=== PATIENT | female | born 1980 | race Caucasian/White ===

== ENCOUNTER 2016-12-19 12:58 | Emergency (ER) | payer SELFPAY ==
[~2016-12-19 12:58] MED LIST: NAPR500 PO; PENI500T PO; Z.0.NO CURRENT MEDS
[2016-12-19 13:08] VITALS: BP 110/60; PULSE 72; RESP 20; TEMP 98.8; O2SAT 96
--- NOTE | 2016-12-19 13:32 | PD ---
HPI Chief Complaint: Cold / Flu Symptoms Time Seen by Provider: 13:10 Travel History International Travel<30 days: No Contact w/Intl Traveler<30days: No Traveled to known affect area: No History of Present Illness HPI 36 -year-old female presents to the emergency room for evaluation of cough and cold symptoms for the past one to 1.5 days. Patient states she can feel the sickness coming on. States everyone at work is sick. It started off with a sore throat and has spread to her chest. She reports nonproductive cough, mild congestion. She has been taking iusu-[id number] oscillococcinum with moderate relief in symptoms. Denies fever, chills, nausea, vomiting, and earache. Denies chronic medical conditions or daily medications. History Social History Alcohol Use: No Tobacco Use: Yes (1 PPD) Allergies-Medications (Allergen,Severity, Reaction): Coded Allergies: Darvocet-N 100 (Verified Allergy, Unknown, PT STATES SO LONG AGO DOES NOT KNOW WHY, 12/19/16) Reported Meds & Prescriptions Reported Meds & Active Scripts Active Naprosyn (Naproxen) 500 Mg Tab 500 Mg PO BIDPRN 30 Days Pen Vk (Penicillin V Potassium) 500 Mg Tab 500 Mg PO QID Reported No Current Meds (Miscellaneous Medication) Misc Review of Systems Except as stated in HPI: all other systems reviewed are Neg Physical Exam Narrative GENERAL: Well-nourished, well-developed female in no acute distress. Afebrile. Ambulatory. SKIN: Focused skin assessment warm/dry. HEAD: Normocephalic. EYES: No scleral icterus. No injection or drainage. ENT: Mucosa pink and moist. Mild erythema without exudates. No uvular edema. No uvular, palatal, or tonsillar deviation. Airway patent. Nasal turbinates appear normal without nasal blood, purulent drainage or septal hematoma. EARS: Bilateral pinnae and external canals appear within normal limits. Bilateral tympanic membranes without erythema, dullness or perforation. NECK: Supple, trachea midline. No JVD or lymphadenopathy. CARDIOVASCULAR: Regular rate and rhythm without murmurs, gallops, or rubs. RESPIRATORY: Breath sounds equal bilaterally. No accessory muscle use. No crackles, rales, wheezes, or rhonchi. Data Data Last Documented VS Vital Signs Date Time Temp Pulse Resp B/P Pulse Ox O2 Delivery O2 Flow Rate FiO2 7/17/17 13:08 98.8 72 20 110/60 96 MDM Medical Screen Exam Complete: Yes Emergency Medical Condition: No Differential Diagnosis Upper respiratory infection Narrative Course 36-year-old otherwise healthy female presents to the emergency room for evaluation of cough and cold symptoms for the past 2 days. People at work are sick with similar symptoms. States xzzl-ccl-scccerg oscillococcinum (a homeopathic medication effective for placebo effect) is improving her symptoms. Vital signs stable. She is afebrile and well-appearing. Coughing occasionally. Lung sounds clear and equal bilaterally. No evidence of bacterial infection in ears, throat, or sinuses. This is viral upper respiratory infection. No urgent or emergent medical conditions at this time. A medical screening exam was performed: At the time of evaluation the presenting medical condition was determined not to be of an emergent nature. The patient was given the option of receiving additional care, but declined. Patient was given options for additional community resources from which to obtain care. The Patient Has Been advised to seek medical attention for their presenting complaint. The patient has been advised to return to the ER at any time if an emergent condition develops. Primary Impression: Encounter for medical screening examination Disposition: 01 DISCHARGE HOME Condition: Stable Elyse Toth Dec 19, 2016 13:32
== END 2016-12-19 13:35 | disposition left against medical advice (07) ==
LOC: PHEFT 12:58
DX: J06.9 Acute upper respiratory infection, unspecified (principal); F17.210 Nicotine dependence, cigarettes, uncomplicated
CPT/HCPCS: 99281